=== PATIENT | male | born 1980 | race Caucasian/White ===

== ENCOUNTER 2023-03-24 09:47 | Emergency (ER) | payer OTHER, SELFPAY ==
[2023-03-24 09:49] VITALS: BP 187/128
--- NOTE | 2023-03-24 09:57 | ED.GENMED ---
History of Present Illness
<Lanie Mccarty PA-C - Last Filed: 03/24/23 15:44>
General
Chief Complaint: Blood Pressure Problem
Source: patient
Exam Limitations: none
Time Seen by Provider: 03/24/23 09:55
Nursing documentation reviewed up to this point in time: agreed with
Travel History
Have you had any contact with someone who has COVID-19?: No
Do you have any symptoms of coronavirus? Fever > 100 degrees, chills, cough, shortness of breath, sore throat, loss of taste or smell, muscle aches, or headache?: No
History of Present Illness
History of Present Illness:
This is a 42 y/o male with a PMH of HLP, pre-diabetes presenting to emergency department today with concerns of hypertension and a headache that started after his ENT surgery 5 days ago. He states that he had a rhinoplasty on Thursday. This is his
second rhinoplasty for trouble breathing out of his right nostril. Patient states that after the first surgery, his blood pressure was very high after the surgery and he had to be given a medication in the hospital to acutely lower his blood
pressure. Patient states that this happened again with this surgery, however he states that they did not lower his BP this time and stated that they told him that it would lower on its own. Patient states that prior to the surgeries, he has not had
any issues with his blood pressure and never had to be put on a medication for it. Patient states that this headache is located at the temporal areas of his head. He denies nausea, vomiting, chest pain, photophobia, shortness of breath, dizziness,
lightheadedness. Patient has tried taking Percocet and acetaminophen for this headache pain but it did not help. Patient describes it as a migraine and does not usually get them.
Review of Systems
<Lanie Mccarty PA-C - Last Filed: 03/24/23 15:44>
Review of Systems
All Other Systems: ROS reviewed and negative except as documented in HPI and ROS
Phy Exam
<Lanie Mccarty PA-C - Last Filed: 03/24/23 15:44>
Physical Exam
Physical Exam:
General: patient is well appearing, in no acute distress
Skin: warm and dry
HEENT: Head--normocephalic, atraumatic, non-tender. Ears--some dried blood left over from surgery, canals clear. Eyes--no conjunctival injection, no scleral icterus. Nose--swollen, dried blood at the nares, surgical scares noted.
Throat--airway patent.
Cardiac: regular rate and rhythm, no murmurs
Pulm: normal respiratory effort, no wheezes, rales, or rhonchi
Abdomen: no abdominal tenderness, no pulsatile abdominal mass
Neuro: CN II-XII intact. AAO x3. No involuntary movements noted.
Course
<Lanie Mccarty PA-C - Last Filed: 03/24/23 15:44>
Orders/Labs/Results
Orders:
Orders
03/24/23 10:13
Electrocardiogram (*1) Urgent
Reason for Study: Tachycardia
EKG- Treatment ONCE
03/24/23 10:17
Complete Blood Count/With Diff Urgent
Comprehensive Metabolic Panel Urgent
Troponin I Urgent
03/24/23 10:25
HYDROmorphone [Dilaudid] 0.5 mg IV NOW STA
Ketorolac [Toradol] 15 mg IV NOW STA
03/24/23 12:33
Dexamethasone [Decadron] 10 mg PO NOW STA
Abnormal Lab Results
03/24/23
10:17
Absolute Monos (auto) 0.8 H 10^3/uL
(0.1-0.6)
Monocytes % 10.6 H %
(1.7-9.3)
Carbon Dioxide 32 H mmol/L
(22-30)
Glucose 155 H mg/dl
(70-99)
03/24/23 10:17
03/24/23 10:17
Vital Signs
Initial and Last Documented VS:
Initial Vital Signs
Temp Pulse Resp BP Pulse Ox
98.6 F 111 18 187/128 98
03/24/23 09:49 03/24/23 09:49 03/24/23 09:49 03/24/23 09:49 03/24/23 09:49
Last Documented Vital Signs
Temp Pulse Resp BP Pulse Ox
98.6 F 100 18 132/81 93
03/24/23 09:49 03/24/23 12:45 03/24/23 12:45 03/24/23 12:00 03/24/23 12:45
<Zaid Rush MD - Last Filed: 03/24/23 15:29>
Orders/Labs/Results
Orders:
Orders
03/24/23 10:13
Electrocardiogram (*1) Urgent
Reason for Study: Tachycardia
EKG- Treatment ONCE
03/24/23 10:17
Complete Blood Count/With Diff Urgent
Comprehensive Metabolic Panel Urgent
Troponin I Urgent
03/24/23 10:25
HYDROmorphone [Dilaudid] 0.5 mg IV NOW STA
Ketorolac [Toradol] 15 mg IV NOW STA
03/24/23 12:33
Dexamethasone [Decadron] 10 mg PO NOW STA
Abnormal Lab Results
03/24/23
10:17
Absolute Monos (auto) 0.8 H 10^3/uL
(0.1-0.6)
Monocytes % 10.6 H %
(1.7-9.3)
Carbon Dioxide 32 H mmol/L
(22-30)
Glucose 155 H mg/dl
(70-99)
03/24/23 10:17
03/24/23 10:17
Vital Signs
Initial and Last Documented VS:
Initial Vital Signs
Temp Pulse Resp BP Pulse Ox
98.6 F 111 18 187/128 98
03/24/23 09:49 03/24/23 09:49 03/24/23 09:49 03/24/23 09:49 03/24/23 09:49
Last Documented Vital Signs
Temp Pulse Resp BP Pulse Ox
98.6 F 100 18 132/81 93
03/24/23 09:49 03/24/23 12:45 03/24/23 12:45 03/24/23 12:00 03/24/23 12:45
<Lanie Mccarty PA-C - Last Filed: 03/24/23 15:44>
MDM/Problems Addressed
Differential Diagnosis Includes:
ddx include rhinoplasty recovery sequela, migraine headache, tension headache, essential hypertension, hyptensive urgency
MDM/Problems Addressed:
headache
Chronic conditions affecting care: Other (hyperlipidemia, pre-diabetes, psoriasis)
Acute Exacerbation and/or Progression of Chronic Illness: HTN
<Lanie Mccarty PA-C - Last Filed: 03/24/23 15:44>
*Pulse Oximetry
Patient hypoxic: no
*EKG
Interpreted by ED Provider?: Yes
EKG Intrepretation Date: 03/24/23
Interpretation: normal
Comparison EKG: no comparison EKG present
Heart Rate: 97
Rate: normal
Rhythm: sinus
[place]: normal axis
Interval: normal interval, normal QT interval and normal MD interval
QRS Pattern: normal QRS
Ischemia: no ischemia
*Critical Care Note
Total Time (30-74mins, 75-104mins- exclusive of procedures): Not Applicable
Data Reviewed
Review of Other/Old Records Reveals: Records (no previous records to review)
Source: patient and family
Prescriptions/Medications Considered But Not Given:
considered acutely lowering BP however BP lowered once headache pain was controlled
Further Testing Considered But Not Given:
considered head CT however symptoms are likely secondary to surgical recovery
<Lanie Mccarty PA-C - Last Filed: 03/24/23 15:44>
Patient Management
Escalation/DeEscalation of care consider admission/obs:
This is a 42-year-old male past medical history of hyperlipidemia, prediabetes, rhinoplasty postop day 5, presenting today with high blood pressure and a headache. Patient states that he had blood pressure issues following his previous surgery.
Patient states that ever since surgery, he has had this persistent headache and has not been able to sleep at night. He states that Percocet at home has not helped. On physical exam, his neurological exam is unremarkable. CBC and CMP are
unremarkable, his EKG is normal sinus rhythm and troponins negative. We treated his headache with Dilaudid and Toradol, this completely relieved his symptoms. Subsequently, his blood pressure came down from 187/128 to 132/81. I believe he was
suffering headache from the congestion he was experiencing from the surgery and that caused him to have a migraine. Patient expresses concern about his blood pressure spiking following return of his symptoms. Provided patient education that his
symptoms will likely return, we did give him a dose of Decadron before he left. Advised patient to start a blood pressure journal and follow-up with his PCP as possible. Patient medically stable for discharge at this point.
<Lanie Mccarty PA-C - Last Filed: 03/24/23 15:44>
Update Note
Update Note:
11:41 am--Patient states that his pain has significantly improved. His pressure came down to 159/110
ED Attending Note
<Lanie Mccarty PA-C - Last Filed: 03/24/23 15:44>
-
Portions of this chart may have been created with voice recognition software.� Occasional wrong word or��sound alike� substitutions may have occurred due to the inherent limitations of voice recognition software.
<Zaid Rush MD - Last Filed: 03/24/23 15:29>
ED Attending Note
Patient seen and examined by attending physician: Yes
ED Attending Note:
Patient presents to ED secondary to persistently elevated blood pressure, along with frontal headache and nasal congestion, after outpatient elective rhinoplasty procedure 3 days ago. Patient was given Percocet postprocedure, which he has taken,
without improvement in his headache. Denies fever or chills. Denies dizziness. Denies blurred vision. Denies loss of sensation or weakness. Denies chest pain or shortness of breath. Denies nausea or vomiting. Of note, patient has had similar
blood pressure elevation after previous rhinoplasty procedure. Patient is currently not taking any medication for blood pressure.
Physical Exam
General: no apparent distress, not acutely ill. afebrile. hypertensive.
Head: nc/at. eomi
Neck: supple. no meningeal signs.
Heart: s1/s2 regular rate and rhythm, no murmur. equal radial pulses.
Lungs: no acute respiratory distress. clear bilaterally
Abdomen: normal bowel sounds. not tender.
Neuro: alert and oriented. no focal neurological deficits
Skin: no rash
Psychiatric: well kept. interactive and cooperative
Extremities: no edema. no calf tenderness.
Patient given pain medication, with improvement in his headache symptoms, along with improvement in his blood pressure. Patient's presenting hypotension, likely multifactorial, mostly secondary to ongoing nasal congestion and frontal pressure as a
result of it, from recent procedure. Discussed with patient at length regarding treatment plan, including conservative management without any antihypertensives, as it is safer to treat underlying etiology. As such, patient will be given Decadron
and advised to call his surgeon, to discuss whether or not he may benefit from tapered dose of prednisone. Patient otherwise is afebrile, hemodynamically stable, and without any distress, at time of discharge.
Discharge Plan
Departure
Patient Disposition: Home (Routine Discharge)
Date of Disposition: 03/24/23
Time of Disposition: 12:32
Patient with high blood pressure during this ER visit?: Yes
Condition: Good
Discharge Problem:
High blood pressure, Headache
Instructions: High Blood Pressure (DC), Headache, Adult (DC)
Referrals:
Nancy Mcgee MD [Family Provider] -
Activity Restrictions/Additional Instructions:
Please return emergency department should you experience chest pain, shortness of breath, dizziness, lightheadedness, abdominal pain, back pain, or other concerning signs or symptoms.
If you have a return of your pain, please try one of your Percocet that you have at home.
Please keep a log of your blood pressures and follow-up with your primary care provider as soon as possible.
Please follow up with your PCP.
Interventions
Interventions:
*Risk Screen - Suicide Last Done: 03/24/23 10:04
*General Assessment Last Done: 03/24/23 10:04
*Neglect/Abuse Screening Last Done: 03/24/23 10:04
ED- Fall Risk Assessment Last Done: 03/24/23 10:04
*ED COVID-19 Vaccine History Last Done: 03/24/23 10:04
*Nursing Disposition Last Done: 03/24/23 13:05
ED- Cardiac Assessment Last Done: 03/24/23 10:04
ED- Neurological Assessment Last Done: 03/24/23 10:04
ED- Pulmonary Assessment Last Done: 03/24/23 10:04
Discharge Date and Time
Discharge Date/Time: 03/24/23 13:04
[2023-03-24 10:04] VITALS: BMI 33.8
[2023-03-24 10:08] VITALS: BP 160/113
[2023-03-24] MEDS: DILAUDID 0.5 MG IV (10:30)
[2023-03-24] MEDS: TORADOL 15 MG IV (10:30)
[2023-03-24 10:34] LABS: % Basophils 0.3 % (0-2); % Eosinophils 1.4 % (0-6); % Immature Granulocytes 0.4 % (0-0.5); % Lymphocytes 23.3 % (20.5-51.1); % Monocytes 10.6 % (1.7-9.3); Absolute Eosinophils 0.1 10^3/uL (0-0.7); Absolute Lymphocytes 1.8 10^3/uL (1.2-3.4); Absolute Monocytes 0.8 10^3/uL (0.1-0.6); Absolute Neutrophils 4.9 10^3/uL (1.4-6.5); Hematocrit 43.9 % (39.0-52.0); Hemoglobin 15.5 g/dL (13.0-18.0); Mean Corp Hgb Conc. 35.3 g/dL (33.0-37.0); Mean Corpuscular Volume 85.1 fL (80.0-94.0); Mean Platelet Volume 8.6 fL (7.4-10.4); Nucleated Red Blood Cells % 0 % (-); Platelet Count 301 10^3/uL (130-400); Red Blood Cell Count 5.16 10^6/uL (4.70-6.10); Red Cell Dist. Width 12.5 % (11.5-14.5); White Blood Cell Count 7.7 10^3/uL (4.8-10.8)
[2023-03-24 10:44] LABS: ALT (SGPT) 43 U/L (0-50); AST (SGOT) 28 U/L (17-59); Albumin 4.5 g/dl (3.5-5.0); Alkaline Phosphatase 59 U/L (38-126); Blood Urea Nitrogen 14 mg/dl (9-20); Calcium 9.7 mg/dl (8.4-10.2); Carbon Dioxide 32 mmol/L (22-30); Chloride 99 mmol/L (98-107); Estimated Creatinine Clearance 117 ml/min; Glucose 155 mg/dl (70-99); Potassium 4.2 mmol/L (3.5-5.1); Sodium 138 mmol/L (135-145); Total Protein 7.7 g/dl (6.3-8.2); eGFR > 60.00
[2023-03-24 10:47] LABS: Troponin I < 0.012 ng/ml
[2023-03-24 11:00] VITALS: BP 159/110
[2023-03-24 12:00] VITALS: BP 132/81
[2023-03-24] MEDS: DECADRON 10 MG PO (12:56)
== END 2023-03-24 13:04 | disposition home or self-care (01) ==
LOC: EMR 09:47
PROVIDERS: Physician Assistant; EMERGENCY PHYSICIAN Emergency Medicine; FAMILY PHYSICIAN Internal Medicine
DX: R51.9 Headache, unspecified (principal); R03.0 Elevated blood-pressure reading, without diagnosis of hypertension; I10 Essential (primary) hypertension
CPT/HCPCS: 99284; 96374; 96375; 80053; 84484; 85025; 93005